=== PATIENT | female | born 1955 | race Caucasian/White ===

== ENCOUNTER 2018-12-16 11:01 | Outpatient (CLI) | payer OTHER | END 2018-12-16 23:59 | disposition home or self-care (01) | LOC: ROC 11:01 | PROVIDERS: ATTEND Radiology Radiation Oncology | DX: C50.111 Malignant neoplasm of central portion of right female breast (principal) | CPT/HCPCS: 99215; G0463 ==

== ENCOUNTER 2018-12-17 13:20 | Outpatient (CLI) | payer OTHER | END 2018-12-17 23:59 | disposition home or self-care (01) | LOC: CFH 13:20 | PROVIDERS: ATTEND Radiology Radiation Oncology | DX: C79.51 Secondary malignant neoplasm of bone (principal); C50.111 Malignant neoplasm of central portion of right female breast; R59.0 Localized enlarged lymph nodes; N61.1 Abscess of the breast and nipple; I10 Essential (primary) hypertension; Z78.0 Asymptomatic menopausal state; Z88.0 Allergy status to penicillin; Z72.89 Other problems related to lifestyle; Z80.3 Family history of malignant neoplasm of breast | CPT/HCPCS: 70553; 78815; A9552; A9585 ==